=== PATIENT | female | born 1970 | race Caucasian/White ===

== ENCOUNTER 2018-12-15 15:56 | Emergency (ER) | payer OTHER ==
[2018-12-15 17:05] LABS: Basophils % (A) 0 %; Eosinophils # (A) 0.2 k/uL (0-0.7); Eosinophils % (A) 3 %; HCT 42.7 % (34.0-46.0); HGB 14.3 gm/dL (11.4-16.0); Lymphocytes # (A) 1.4 k/uL (1.0-4.8); Lymphocytes % (A) 25 %; MCH 28.6 pg (25.0-35.0); MCHC 33.5 g/dL (31.0-37.0); MCV 85.4 fL (80.0-100.0); Mean Platelet Volume 6.9; Monocytes # (A) 0.2 k/uL (0-1.0); Monocytes % (A) 4 %; Neutrophils # (A) 3.9 k/uL (1.3-7.7); Neutrophils % (A) 67 %; Platelet Count 273 k/uL (150-450); RBC 5.01 m/uL (3.80-5.40); RDW 13.5 % (11.5-15.5); WBC 5.8 k/uL (3.8-10.6)
[2018-12-15 17:10] LABS: ALT 17 U/L (9-52); AST 16 U/L (14-36); African American GFR (CKD) >90 (>60 ml/min/1.73 sqM); Albumin 4.2 g/dL (3.5-5.0); Alkaline Phosphatase 69 U/L (38-126); Anion Gap 11 mmol/L; Blood Urea Nitrogen 13 mg/dL (7-17); Calcium 9.9 mg/dL (8.4-10.2); Carbon Dioxide 24 mmol/L (22-30); Chloride 105 mmol/L (98-107); Glucose 193 mg/dL (74-99); INR 0.9 (<1.2); Partial Thromboplastin Time 24.5 sec (22.0-30.0); Potassium 4.1 mmol/L (3.5-5.1); Prothrombin Time 9.5 sec (9.0-12.0); Sodium 140 mmol/L (137-145); Total Bilirubin 0.6 mg/dL (0.2-1.3); Total Protein 7.2 g/dL (6.3-8.2)
--- NOTE | 2018-12-15 17:38 | ED ---
Neuro HPI - General Chief Complaint: Neuro Symptoms/Deficit Stated Complaint: Stroke symptoms Time Seen by Provider: 12/15/18 16:03 Source: patient, family Limitations: no limitations - History of Present Illness Is the patient presenting with stroke symptoms?: Yes Last Known Well Date: 12/14/18 Initial Comments: The patient is a 52-year-old female who presents to the emergency room with reported right-sided facial droop. The patient states for the past several days she's had significant tearing coming from her right eye. Her daughter did present to her house yesterday and saw her around 5 PM. She noted that her mother had significant right-sided facial droop. The patient believes the onset of symptoms was prior to this however she did not look at herself in the mirror. The patient reports that she's been having difficulty swallowing water as it does tend to trickle from the right side of her mouth. No history of similar symptoms in the past. She denies any upper or lower extremity weakness. There is no reported confusion or apahsia. No ataxia. The patient reports to slurred speech secondary to dysarthria. She is unable to close her right eye or wrinkle her forehead on the right side. She denies any headaches or visual changes. No neck pain or stiffness. Denies any blunt head trauma. She is not on any blood thinners. She denies any additional symptoms to include chest pain, shortness of breath, abdominal pain, nausea or vomiting. No history of aneurysms or familial connective tissue disorders. There are no other alleviating, precipitating or modifying factors - Related Data Home Medications: Home Medications Medication Instructions Recorded Confirmed Meloxicam [Mobic] 15 mg PO DAILY 12/15/18 12/15/18 Phentermine HCl [Adipex-P] 37.5 mg PO DAILY 12/15/18 12/15/18 glipiZIDE XL [Glucotrol Xl] 5 mg PO DAILY 12/15/18 12/15/18 metFORMIN HCL ER [Glucophage Xr] 1,000 mg PO HS 12/15/18 12/15/18 Previous Rx's Medication Instructions Recorded Carboxymethylcellulose Sodium 2 drops OP QID #1 bottle 12/15/18 [Refresh Tears] predniSONE 20 mg PO BID #10 tab 12/15/18 valACYclovir HCL [Valacyclovir] 1,000 mg PO TID 7 Days #21 tab 12/15/18 Allergies/Adverse Reactions: Allergies Allergy/AdvReac Type Severity Reaction Status Date / Time Penicillins Allergy Rash/Hives Verified 12/15/18 18:24 Tetracyclines Allergy Rash/Hives Verified 12/15/18 18:24 Review of Systems ROS Statement: Those systems with pertinent positive or pertinent negative responses have been documented in the HPI. ROS Other: All systems not noted in ROS Statement are negative. General Exam Limitations: no limitations General appearance: alert, in no apparent distress Head exam: Present: atraumatic, normocephalic, normal inspection Eye exam: Present: normal appearance, PERRL, EOMI. Absent: scleral icterus, conjunctival injection, periorbital swelling ENT exam: Present: mucous membranes moist Neck exam: Present: normal inspection. Absent: tenderness, meningismus, lymphadenopathy Respiratory exam: Present: normal lung sounds bilaterally. Absent: respiratory distress, wheezes, rales, rhonchi, stridor Cardiovascular Exam: Present: regular rate, normal rhythm, normal heart sounds. Absent: systolic murmur, diastolic murmur, rubs, gallop, clicks GI/Abdominal exam: Present: soft, normal bowel sounds. Absent: distended, tenderness, guarding, rebound, rigid Extremities exam: Present: normal inspection, full ROM, normal capillary refill, other (5/5 muscle strength in her bilateral upper and lower extremities). Absent: tenderness, pedal edema, joint swelling, calf tenderness Back exam: Present: normal inspection Neurological exam: Present: alert, oriented X3, normal gait, reflexes normal, other (the patient has right sided facial droop. She is unable to wrinkle her forehead or close her right eye. There is flattening of the nasolabial fold. She has dysarthria. No weakness in her extremities. Finger to nose is symmetric. No visual gaze deficit. No neglect. No expressive aphasia. Sensation intact distally.). Absent: motor sensory deficit Psychiatric exam: Present: normal affect, normal mood Skin exam: Present: warm, dry, intact, normal color. Absent: rash Stroke MDM - Lab Data Result diagrams: 12/15/18 16:44 12/15/18 16:44 Lab Results 12/15/18 12/15/18 12/15/18 Range/Units 16:44 16:44 16:44 WBC 5.8 (3.8-10.6) k/uL RBC 5.01 (3.80-5.40) m/uL Hgb 14.3 (11.4-16.0) gm/dL Hct 42.7 (34.0-46.0) % MCV 85.4 (80.0-100.0) fL MCH 28.6 (25.0-35.0) pg MCHC 33.5 (31.0-37.0) g/dL RDW 13.5 (11.5-15.5) % Plt Count 273 (150-450) k/uL Neutrophils % 67 % Lymphocytes % 25 % Monocytes % 4 % Eosinophils % 3 % Basophils % 0 % Neutrophils # 3.9 (1.3-7.7) k/uL Lymphocytes # 1.4 (1.0-4.8) k/uL Monocytes # 0.2 (0-1.0) k/uL Eosinophils # 0.2 (0-0.7) k/uL Basophils # 0.0 (0-0.2) k/uL PT 9.5 (9.0-12.0) sec INR 0.9 (<1.2) APTT 24.5 (22.0-30.0) sec Sodium 140 (137-145) mmol/L Potassium 4.1 (3.5-5.1) mmol/L Chloride 105 (98-107) mmol/L Carbon Dioxide 24 (22-30) mmol/L Anion Gap 11 mmol/L BUN 13 (7-17) mg/dL Creatinine 0.48 L (0.52-1.04) mg/dL Est GFR (CKD-EPI)AfAm >90 (>60 ml/min/1.73 sqM) Est GFR (CKD-EPI)NonAf >90 (>60 ml/min/1.73 sqM) Glucose 193 H (74-99) mg/dL Calcium 9.9 (8.4-10.2) mg/dL Total Bilirubin 0.6 (0.2-1.3) mg/dL AST 16 (14-36) U/L ALT 17 (9-52) U/L Alkaline Phosphatase 69 (38-126) U/L Total Protein 7.2 (6.3-8.2) g/dL Albumin 4.2 (3.5-5.0) g/dL - Medical Decision Making Upon arrival the patient was placed into room 2. She was hooked up to continuous pulse ox and air sampling and monitoring. A 12-lead EKG was performed on the ca tient. Peripheral IV was established. We did obtain laboratory studies. The patient was sent for a CT of her brain as well as CT angios of her head and neck. Upon return, the results were discuss with the patient. 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 I did discuss diagnosis, differential and treatment options. The patient does present to the emergency department with right-sided facial droop which involves the forehead and is consistent with García's palsy. I did recommend admission to the hospital for continued neurologic exam and possible MRI to fully rule out stroke. She also needs to establish care with a neurologist for her basilar artery aneurysm. The patient refused admission and requested to go home. She is aware of the risks of leaving. Because of this I did recommend treatment with steroids and antivirals. The patient was given 60 mg of prednisone within the emergency department. I did give her prescription for prednisone 20 mg to be taken twice daily for the next 5 days. She also be given a perception for acyclovir and lubricating eyedrops. She must follow-up with her ENT for evaluation of the bells palsy with history of right ear reconstruction. She also must follow-up with a neurologist for her newly diagnosed aneurysm. She should follow up with her primary care physician and see them within 1-2 days. If the patient is a new or worsening symptoms she should return to the emergency room. Return parameters were discussed. The patient remained in stable condition with no additional focal logic deficits. She was then discharged home in stable condition - Radiology Data Radiology results: report reviewed - EKG Data -: EKG Interpreted by [facility] EKG shows normal: sinus rhythm Rate: normal 12/15/18 17:37 EKG demonstrates a normal sinus rhythm with a ventricular rate of 75. AL interval 120. QRS 13. QTC of 469. There is a right bundle branch block. No acute ST segment elevations or depressions concerning for ischemic changes Past Medical History Past Medical History: Diabetes Mellitus Past Surgical History: Section Additional Past Surgical History / Comment(s): EAR SURGERIES X3 Past Psychological History: No Psychological Hx Reported Smoking Status: Former smoker Past Alcohol Use History: None Reported Past Drug Use History: None Reported Course Vital Signs 12/15/18 12/15/18 15:58 19:13 Temperature 98.4 F 98.2 F Pulse Rate 78 75 Respiratory 16 13 Rate Blood Pressure 137/89 125/83 O2 Sat by Pulse 95 98 Oximetry Disposition Clinical Impression: García palsy, Basilar artery aneurysm Disposition: HOME SELF-CARE Condition: Stable Instructions (If sedation given, give patient instructions): García Palsy (ED) Additional Instructions: Please follow-up with your primary care doctor in 1-2 days. Check your sugars frequently. Return to the emergency room for any new or worsening symptoms. You need to follow up with a neurologist regarding your basilar artery aneurysm. I would also like you to follow-up with your ear nose and throat doctor regarding the diagnosis of García's. Prescriptions: predniSONE 20 mg PO BID #10 tab Carboxymethylcellulose Sodium [Refresh Tears] 2 drops OP QID #1 bottle valACYclovir HCL [Valacyclovir] 1,000 mg PO TID 7 Days #21 tab Is patient prescribed a controlled substance at d/c from ED?: No Referrals: Brendan Chatterjee MD [Primary Care Provider] - 1-2 days Chani Donovan MD [STAFF PHYSICIAN] - 1-2 days Forms: Work/School Release / Restrict Time of Disposition: 18:46
--- NOTE | 2018-12-15 17:58 | CT ---
EXAMINATION TYPE: CT brain wo con for TPA DATE OF EXAM: 12/15/2018 COMPARISON: None HISTORY: RIGHT SIDED FACIAL DROOP CT DLP: 1093 mGycm Automated exposure control for dose reduction was used. FINDINGS: There is mild cerebral cortical atrophy. There is no mass effect nor midline shift. There is no sign of intracranial hemorrhage. The calvarium appears intact. There is mild mucosal thickening in the max illary sinuses. IMPRESSION: MILD ATROPHY. NO ACUTE INTRACRANIAL ABNORMALITY.
--- NOTE | 2018-12-15 18:15 | CT ---
EXAMINATION TYPE: CT angio head neck DATE OF EXAM: 12/15/2018 HISTORY: Right sided facial droop COMPARISON: None CT DLP: 375.9 mGycm. Automated Exposure Control for Dose Reduction was Utilized. TECHNIQUE: CTA scan of the neck is performed with IV Contrast, patient injected with 50 mL of Isovue 370, axial images are obtained, coronal and sagittal reformatted images are reviewed. Three-D recons tructed images are created on an independent workstation and reviewed. FINDINGS: There is normal branching pattern of the great vessels on the aortic arch. There is bilateral arteria l flow in the subclavian arteries. There is arterial flow in the common internal and external carotid arteries bilaterally. There is arterial flow in both vertebral arteries which are fairly symmetric. There is arterial flow in the vertebrobasilar artery system. The carotid artery bifurcations appear widely patent. There is no evidence of carotid artery aneurysm or dissection. There is no evidence of vertebral artery dissection. There is arterial flow in the anterior middle and posterior cerebral arteries. There is mild bulbous appearance of the tip of the basilar artery. I see no evidence of intracranial arterial stenosis. There is no mass effect. There is normal contras t opacification of the venous sinuses. IMPRESSION: Negative CT angiogram of the neck. There is evidence of a 4 mm aneurysm of the tip of the basilar artery.
[2018-12-15] MEDS ORDERED: predniSONE 20 MG TAB PO STA (18:36)
[2018-12-15 19:30] VITALS: BP 125/83; PULSE 75; RESP 13; TEMP 98.2
== END 2018-12-15 19:13 | disposition home or self-care (01) ==
LOC: EC 15:56
DX: G51.0 Bell's palsy (principal); I72.5 Aneurysm of other precerebral arteries; E11.9 Type 2 diabetes mellitus without complications; Z87.891 Personal history of nicotine dependence; Z53.29 Procedure and treatment not carried out because of patient's decision for other reasons; Z79.1 Long term (current) use of non-steroidal anti-inflammatories (NSAID); Z79.84 Long term (current) use of oral hypoglycemic drugs; Z79.899 Other long term (current) drug therapy; Z88.1 Allergy status to other antibiotic agents; Z88.0 Allergy status to penicillin
CPT/HCPCS: 36415; 93005; 80053; 85025; 85610; 85730; 70496; 70450; 70498; 99284; J7512; Q9967